=== PATIENT | female | born 1925 | race Caucasian/White ===

== ENCOUNTER 2017-05-23 19:13 | Inpatient (IN) ==
[2017-05-23] MEDS ORDERED: 0.9 % Sodium Chloride 1,000 ML IVC ONE (19:34)
[2017-05-23 20:00] LABS: Basophils % 0.4 %; Eosinophils # 0.1 K/mcL (0.0-0.6); Eosinophils % 1.2 %; Hematocrit 42.9 % (35.3-44.9); Hemoglobin 13.8 g/dL (11.5-15.4); Immature Granulocytes % 0.5 % (0-4); Immature Platelets 3.2 % (1.1-6.1); Lymphocytes # 1.2 K/mcL (0.6-4.6); Lymphocytes % 13.1 %; Mean Corpuscular HGB Conc 32.2 g/dL (31.6-35.5); Mean Corpuscular Hemoglobin 29.6 pg (28.0-33.3); Mean Corpuscular Volume 92.1 fL (83.0-100.0); Monocytes # 0.9 K/mcL (0.0-1.3); Monocytes % 9.8 %; Neutrophils # 7.1 K/mcL (1.6-8.9); Platelet Count 286 K/mcL (140-400); Red Blood Count 4.66 M/mcL (3.82-4.97); Red Cell Distribution Width 14.4 % (11.5-14.5)
[2017-05-23 20:04] LABS: INR 2.3; Prothrombin Time 25.5 Seconds (9.4-12.1)
[2017-05-23 20:07] LABS: Activated Partial Thrombo Time 36.4 Seconds (26.0-36.0)
[2017-05-23 20:10] LABS: Bilirubin,Urine Negative (Negative); Blood,Urine Moderate (Negative); Clarity,Urine Cloudy (Clear); Color,Urine Yellow (Yellow); Glucose,Urine (UA) Normal (Normal); Ketones,Urine 15 mg/dL (Negative); Leukocyte Esterase,Urine Small (Negative); Nitrite,Urine Negative (Negative); Protein,Urine Negative (Neg-Trace); Urobilinogen,Urine Normal (Normal)
[2017-05-23 20:12] LABS: Bacteria,Urine Many per hpf (None-Few); Hyaline Casts,Urine None Seen per lpf (None-Few); Squamous Epithelial Cell,Urine Many per lpf (None-Few)
[2017-05-23 20:13] LABS: Albumin 3.5 g/dL (3.5-5.0); Albumin/Globulin Ratio 1.1 (1.1-2.2); Bilirubin,Direct 0.3 mg/dL (0.0-0.5); Bilirubin,Indirect 0.3 mg/dL (0.0-1.2); Bilirubin,Total 0.6 mg/dL (0.2-1.2); Calcium 9.4 mg/dL (8.6-10.8); Globulin 3.1 g/dL (2.4-3.5); Magnesium 1.7 mg/dL (1.6-2.6); Phosphorous 3.7 mg/dL (2.3-4.7); Potassium 3.6 mEq/L (3.5-4.5); Total Protein 6.6 g/dL (6.0-8.3)
--- NOTE | 2017-05-23 21:11 | Emergency Department Note ---
Disposition Clinical Impression: Pyelonephritis, Lactic acid acidosis, MIRI (acute kidney injury) Disposition: Admitted As Inpatient Condition: Fair Time of Disposition: 21:43 SOB HPI - General Chief Complaint: ED Shortness of Breath/Dyspnea Stated Complaint: NEFTALI Source: family Mode of arrival: wheelchair Limitations: no limitations Nursing Notes Reviewed: Yes Vital Signs Reviewed: Yes - History of Present Illness 89-year-old female presents to the emergency department complaining of shortness of breath as well as altered mental status. They said this has been going on for approximately 2 days. She does have history of aspiration pneumonia and they are worried about this. Patient has history of COPD but is not on oxygen. She has had to be intubated before do the aspiration pneumonia. They said she is not acting her normal self or she seems like she is more weak than normal. She is normally able to get up on her own and walk with a walker and this not been occurring for the last 2 days. She also has a history of UTIs. They think that also could be this. Recently seen by the PCP and there are some labs drawn today to have any on her eyes or her neck on the results back yet. 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 Patient does live at home with daughter is the primary hot blaster. Patient is not having any other complaints including chest pain, headache, blurry vision, neck pain, back pain, abdominal pain, change in bowel movement, pain with urination, pain or tingling going down the arms or legs or generalized weakness. - Related Data Home Medications Medication Instructions Recorded Confirmed Diltiazem CD (24hr) [Cardizem CD] 180 mg PO DAILY 12/30/15 12/30/15 FLUoxetine HCl [PROzac] 20 mg PO DAILY 12/30/15 12/30/15 Furosemide [Lasix] 20 mg PO DAILY 12/30/15 12/30/15 Hydrocodone/Acetaminophen [Vicodin 1 each PO BID PRN 12/30/15 12/30/15 Es 7.5-300 mg Tablet] Metoprolol Succinate 12.5 mg PO 12/30/15 Ranitidine Oral Soln [Zantac] 150 mg PO DAILY 12/30/15 12/30/15 Warfarin [Coumadin] 2 mg PO 12/30/15 Allergies Allergy/AdvReac Type Severity Reaction Status Date / Time carisoprodol [From Soma] Allergy Rash Verified 12/30/15 12:51 indomethacin [From Indocin] Allergy Rash Verified 12/30/15 12:51 NSAIDS (Non-Steroidal Allergy Rash Verified 12/30/15 12:51 Anti-Inflamma Penicillins [PCN] Allergy Rash Verified 12/30/15 12:51 venom-honey bee Allergy Anaphylaxis Verified 12/30/15 12:51 [bee venom (honey bee)] Review of Systems: 10 point review of systems done and negative unless otherwise stated in history of present illness. All systems ED: reviewed and negative except as stated. Review of Systems: As Per [facility] Past Medical History - Past Medical History Attestation: Yes The following information was validated with the patient. Medical history: Reports: arthritis, atrial fibrillation, CHF, GERD, hypertension, osteoporosis, other Psychiatric history: Reports: no psych history - Social History Smoking Status: Never smoker Smokeless Tobacco Status: No Alcohol use: Reports: none Drug use: Reports: none Physical Exam - General Limitations: no limitations General appearance: alert, in no apparent distress - Head Head exam: atraumatic, normocephalic, normal inspection - Eye Eye exam: Present: normal appearance, PERRL, EOMI - ENT ENT exam: normal exam, normal oropharynx, mucous membranes moist - Neck Neck exam: Present: normal inspection, full ROM, trachea midline - Chest Chest inspection: Present: normal inspection, symmetric chest wall rise - Respiratory Respiratory exam: Present: normal lung sounds bilaterally - Cardiovascular Cardiovascular exam: Present: regular rate, irregular rhythm, normal heart sounds - Abdominal Exam Abdominal exam: Present: soft, Non-Tender. Absent: tenderness, distention, guarding, rebound, rigidity - Extremities Exam Extremities exam: Present: normal inspection, full ROM. Absent: tenderness, pedal edema - Expanded Lower Extremity Exam Neurovascular/Tendon exam: Present: normal capillary refill. Absent: pulse deficit, motor deficit, sensory deficit, tendon deficit - Back Exam Back exam: Present: normal inspection, full ROM. Absent: tenderness, CVA tenderness (R), CVA tenderness (L) - Neurological Exam Neurological exam: Present: alert, oriented X3 - Skin Skin exam: Present: warm, dry, intact, normal color Course Course Narrative: 89-year-old male presents emergency Department with altered mental status as well as difficulty in breathing. Due to patient's history we will do surge criteria patient did not meet admission and she was not tachycardic or hypotensive. We will get basic CBC, CMP, lactate with a timely lactate, blood cultures, urinalysis, mag, Phos, chest x-ray patient's okay with this plan. Disposition pending results and discussion with family. Vital Signs Temperature 97.6 F 05/23/17 19:15 Pulse Rate 102 05/23/17 19:15 Respiratory Rate 20 05/23/17 19:15 Blood Pressure 91/58 05/23/17 19:15 O2 Sat by Pulse Oximetry 98 05/23/17 19:15 Temperature 97.6 F 05/23/17 19:15 Pulse Rate 66 05/23/17 21:02 Respiratory Rate 97 05/23/17 21:50 Blood Pressure 111/66 05/23/17 21:50 O2 Sat by Pulse Oximetry 98 05/23/17 21:02 Oxygen Delivery Oxygen Delivery Room Air Shortness of Breath/Dyspnea - MDM Narrative Medical decision making narrative: 89-year-old female presented to the emergency department with generalized weakness as well as shortness of breath. Patient did have mild altered mental status after evaluating her. She had normal breath sounds bilaterally. Chest x -ray was normal showing no acute findings. Did do basic sepsis criteria on her she did show to have a lactic acidosis did give her 1500 mL of normal saline to meet the 30 mls per KG. And started patient on Rocephin. Patient did have a positive UTI due to lactic acidosis as well as having a new acute kidney injury we felt patient was likely a pyelonephritis and would benefit from admission to the hospital to monitor the lactic acidosis as well as the AKA eye. Spoke with family in a group this plan. Patient is now admitted to the hospitalist service I talked with Dr. Cruz who agreed to accept the patient to their service. Patient is accepted to the hospital service in stable condition. Chest X-Ray 05/23/17 20:04 IMPRESSION: Stable cardiomegaly. Probable COPD. Increased lung markings at the bilateral parahilar regions, may be related to bronchitis. D/ / Wilmar Mo MD / Wilmar Mo MD Interpreting Provider: Wilmar Mo MD - Medical Records Medical records reviewed: Yes I reviewed the patient's medical records. - Lab Data Lab results reviewed: Yes I reviewed the patient's lab results. Result diagrams: 05/23/17 19:45 05/23/17 19:45 Lab Results 05/23/17 05/23/17 05/23/17 Range/Units 19:45 19:45 19:45 WBC 9.5 (4.3-11.1) K/mcL RBC 4.66 (3.82-4.97) M/mcL Hgb 13.8 (11.5-15.4) g/dL Hct 42.9 (35.3-44.9) % MCV 92.1 (83.0-100.0) fL MCH 29.6 (28.0-33.3) pg MCHC 32.2 (31.6-35.5) g/dL RDW 14.4 (11.5-14.5) % Plt Count 286 (140-400) K/mcL MPV 10.0 (9.4-12.4) fL Immature Gran % 0.5 (0-4) % Seg Neutrophils % 75.0 % Lymphocytes % 13.1 % Monocytes % 9.8 % Eosinophils % 1.2 % Basophils % 0.4 % Neutrophils # 7.1 (1.6-8.9) K/mcL Lymphocytes # 1.2 (0.6-4.6) K/mcL Monocytes # 0.9 (0.0-1.3) K/mcL Eosinophils # 0.1 (0.0-0.6) K/mcL Basophils # 0.0 (0.0-0.2) K/mcL Immature Plt Fraction 3.2 (1.1-6.1) % PT 25.5 H (9.4-12.1) Seconds INR 2.3 APTT 36.4 H (26.0-36.0) Seconds Sodium 142 (136-145) mEq/L Potassium 3.6 (3.5-4.5) mEq/L Chloride 104 (98-109) mEq/L Carbon Dioxide 21 (19-29) mEq/L BUN 17 (7-20) mg/dL Creatinine 1.24 H (0.57-1.11) mg/dL Est GFR ( Amer) 49 L (> 60) Est GFR (Non-Af Amer) 41 L (> 60) BUN/Creatinine Ratio 14 (6-26) Glucose 178 H (70-99) mg/dL Calculated Osmolality 300 (280-300) Lactic Acid (0.5-2.2) mmol/L Calcium 9.4 (8.6-10.8) mg/dL Phosphorus 3.7 (2.3-4.7) mg/dL Magnesium 1.7 (1.6-2.6) mg/dL Total Bilirubin 0.6 (0.2-1.2) mg/dL Direct Bilirubin 0.3 (0.0-0.5) mg/dL Indirect Bilirubin 0.3 (0.0-1.2) mg/dL AST 18 (5-34) Units/L ALT 10 (0-55) Units/L Alkaline Phosphatase 106 (38-126) Units/L Troponin I (0-0.03) ng/mL Serum Total Protein 6.6 (6.0-8.3) g/dL Albumin 3.5 (3.5-5.0) g/dL Globulin 3.1 (2.4-3.5) g/dL Albumin/Globulin Ratio 1.1 (1.1-2.2) Urine Color (Yellow) Urine Clarity (Clear) Urine pH (5.0-8.0) pH Units Ur Specific [place] (1.010-1.025) Urine Protein (Neg-Trace) mg/dL Urine Glucose (UA) (Normal) mg/dL Urine Ketones (Negative) mg/dL Urine Blood (Negative) Urine Nitrite (Negative) Urine Bilirubin (Negative) Urine Urobilinogen (Normal) mg/dL Ur Leukocyte Esterase (Negative) Urine Microscopic RBC (0-3) per hpf Urine Microscopic WBC (0-3) per hpf Ur Squamous Epith Cells (None-Few) per lpf Urine Bacteria (None-Few) per hpf Hyaline Casts (None-Few) per lpf Ur Culture Indicated? (NO) 05/23/17 05/23/17 05/23/17 Range/Units 19:45 19:45 20:00 WBC (4.3-11.1) K/mcL RBC (3.82-4.97) M/mcL Hgb (11.5-15.4) g/dL Hct (35.3-44.9) % MCV (83.0-100.0) fL MCH (28.0-33.3) pg MCHC (31.6-35.5) g/dL RDW (11.5-14.5) % Plt Count (140-400) K/mcL MPV (9.4-12.4) fL Immature Gran % (0-4) % Seg Neutrophils % % Lymphocytes % % Monocytes % % Eosinophils % % Basophils % % Neutrophils # (1.6-8.9) K/mcL Lymphocytes # (0.6-4.6) K/mcL Monocytes # (0.0-1.3) K/mcL Eosinophils # (0.0-0.6) K/mcL Basophils # (0.0-0.2) K/mcL Immature Plt Fraction (1.1-6.1) % PT (9.4-12.1) Seconds INR APTT (26.0-36.0) Seconds Sodium (136-145) mEq/L Potassium (3.5-4.5) mEq/L Chloride (98-109) mEq/L Carbon Dioxide (19-29) mEq/L BUN (7-20) mg/dL Creatinine (0.57-1.11) mg/dL Est GFR ( Amer) (> 60) Est GFR (Non-Af Amer) (> 60) BUN/Creatinine Ratio (6-26) Glucose (70-99) mg/dL Calculated Osmolality (280-300) Lactic Acid 4.9 H* (0.5-2.2) mmol/L Calcium (8.6-10.8) mg/dL Phosphorus (2.3-4.7) mg/dL Magnesium (1.6-2.6) mg/dL Total Bilirubin (0.2-1.2) mg/dL Direct Bilirubin (0.0-0.5) mg/dL Indirect Bilirubin (0.0-1.2) mg/dL AST (5-34) Units/L ALT (0-55) Units/L Alkaline Phosphatase (38-126) Units/L Troponin I 0.03 (0-0.03) ng/mL Serum Total Protein (6.0-8.3) g/dL Albumin (3.5-5.0) g/dL Globulin (2.4-3.5) g/dL Albumin/Globulin Ratio (1.1-2.2) Urine Color Yellow (Yellow) Urine Clarity Cloudy A (Clear) Urine pH 6.0 (5.0-8.0) pH Units Ur Specific [place] 1.020 (1.010-1.025) Urine Protein Negative (Neg-Trace) mg/dL Urine Glucose (UA) Normal (Normal) mg/dL Urine Ketones 15 H (Negative) mg/dL Urine Blood Moderate H (Negative) Urine Nitrite Negative (Negative) Urine Bilirubin Negative (Negative) Urine Urobilinogen Normal (Normal) mg/dL Ur Leukocyte Esterase Small H (Negative) Urine Microscopic RBC 5-15 H (0-3) per hpf Urine Microscopic WBC 5-15 H (0-3) per hpf Ur Squamous Epith Cells Many H (None-Few) per lpf Urine Bacteria Many H (None-Few) per hpf Hyaline Casts None Seen (None-Few) per lpf Ur Culture Indicated? NO (NO) - Radiology Data Radiology results reviewed: Yes I reviewed the patient's radiology results. - EKG Data EKG attestation: Yes I reviewed and interpreted this EKG. EKG results narrative: EKG done at 1932 review myself and attending shows atrial fibrillation at a rate of 85, QRS 96, QTC 439, normal axis. There is no acute ST changes, no acute T-wave abnormalities, no signs of any heart block were hypertrophy or heart strength, no signs of WPW/Brugada syndrome. This is compared with an old EKG done 12/30/15 and is unchanged. Attestation Statement - Attestation Attestation: I examined this patient and my medical decision-making was reviewed with the Resident Physician. I agree with the documented findings, disposition and treatment plan as described except to the extent set forth below. Patient to ED with dyspnea on exertion. Complaining of shortness of breath. Daughter thought she looked a little labored in her breathing earlier. Appears better now. No fever. On examination she is lying in bed. She is oriented to self and place. This is her baseline. She is moving all extremities. Plan patient is an elevated lactic acid that puts her in the septic shock diagnosis. She appears well-hydrated. She is received at 30/kg bolus. She has not been hypotensive. She is mentating at her baseline. She is receiving IV antibiotics for UTI. She is admitted to medicine. 35 minutes of critical care exclusive of separately billable procedures.
[2017-05-23] MEDS ORDERED: cefTRIAXone 1,000 MG in Water for inj. (sterile) 10 ML IVPB ONE (21:38)
[2017-05-23] MEDS ORDERED: 0.9 % Sodium Chloride 1,000 ML IVC SCH (21:45)
[2017-05-23] MEDS ORDERED: Naloxone 0.4 MG/ML INJ IVP PRN (21:47)
[2017-05-23] MEDS ORDERED: Ondansetron 4 MG/2 ML VIAL IVP PRN (21:47)
[2017-05-23] MEDS ORDERED: *HR* HYDROcodone/Acet 7.5/325 mg TABLET PO PRN (21:49)
--- NOTE | 2017-05-23 21:54 | Internal Med History&Physical ---
Date of Encounter: 05/23/17 Time of Encounter: 21:51 Assessment and Plan (1) UTI (urinary tract infection) Current visit: Yes Status: Acute urine cx pend risk factor of urinary/bowel incontinent at baselin IV rocephin IVF Qualifiers: Urinary tract infection type: acute cystitis Qualified Code(s): N30.00 - Acute cystitis without hematuria (2) MIRI (acute kidney injury) Current visit: Yes Status: Acute IVF trend cr (3) Lactic acid acidosis Current visit: Yes Status: Acute see above (4) Dementia Current visit: Yes Status: Acute sitter per family request aspiration precautions fall risk Qualifiers: Dementia type: Alzheimer's disease Qualified Code(s): G30.1 - Alzheimer's disease with late onset; F02.81 - Dementia in other diseases classified elsewhere with behavioral disturbance; F02.81 - Dementia in other diseases classified elsewhere with behavioral disturbance; F02.81 - Dementia in other diseases classified elsewhere with behavioral disturbance Internal Medicine - H&P: HPI Chief complaint: Hasn't feel good History of present illness: Ms. Burroughs is a 89 year old female who presents with confusion found UTI, MIRI. She lives with dtr at home and is DNRCCA/DNI. Baseline, she uses walker but has mild to moderate dementia and has aspiration and delirium risk. Dtr requested for sitter as a result of this. She is uses depends and is incontinent of bowel and urine mostly She was noted to have decreased mental status in the last 2 days associated with some choking during breakfast. She reports not feeling good but was unable to specific area. Denies fever/chills. She is hard of hearing. No N/V/abdo pain but has poor appetite EKG reviewed with rate 85, AFib XR/XR chest 1V portable IMPRESSION: Stable cardiomegaly. Probable COPD. Increased lung markings at the bilateral parahilar regions, may be related to bronchitis. Past Med Surg Social Fam HX - Past Medical History Medical history: arthritis, atrial fibrillation, CHF, GERD, hypertension, osteoporosis, other Psychiatric history: no psych history - Past Surgical History Surgical History: no surgical history - Social History Smoking Status: Never smoker Smokeless Tobacco Status: No Alcohol use: none Drug use: none - Additional Family History Additional family history: HTN Internal Medicine - H&P: Meds Diltiazem CD (24hr) [Cardizem CD] 180 mg PO DAILY 12/30/15 [History] FLUoxetine HCl [PROzac] 20 mg PO DAILY 12/30/15 [History] Furosemide [Lasix] 20 mg PO DAILY 12/30/15 [History] Hydrocodone/Acetaminophen [Vicodin Es 7.5-300 mg Tablet] 1 each PO BID PRN 12/29 [History] Metoprolol Succinate 12.5 mg PO 12/30/15 [History] Ranitidine Oral Soln [Zantac] 150 mg PO DAILY 12/30/15 [History] Warfarin [Coumadin] 2 mg PO 12/30/15 [History] 3 Allergy/AdvReac Type Severity Reaction Status Date / Time carisoprodol [From Soma] Allergy Rash Verified 12/30/15 12:51 indomethacin [From Indocin] Allergy Rash Verified 12/30/15 12:51 NSAIDS (Non-Steroidal Allergy Rash Verified 12/30/15 12:51 Anti-Inflamma Penicillins [PCN] Allergy Rash Verified 12/30/15 12:51 venom-honey bee Allergy Anaphylaxis Verified 12/30/15 12:51 [bee venom (honey bee)] All Systems PM: A 10-system review of systems was performed and is negative for pertinent findings except as documented above in the HPI. Review of systems: ROS 14 point review of systems reviewed as best as possible given presentation. Pertinent positive or negative as per HPI or otherwise reviewed as negative - Constitutional Vitals: Temp Pulse Resp BP Pulse Ox 97.6 F 66 18 111/57 98 05/23/17 19:15 05/23/17 21:02 05/23/17 21:02 05/23/17 21:02 05/23/17 21:02 Exam: General - AA x2 Eyes - ISABELLA. Eye lids intact. No scleral icterus Neuro - No gross peripheral or central neuro deficits with intact CN 2-12 exam Heart - Irregularly irregular. S1 and S2 present. No added HS/murmurs appreciated. No elevated JVD appreciated. Lung - Adequate air entry b/l, No crackles/wheezes appreciated GI - Soft, non-tender. No hepatosplenomegaly/ascites. BS+ - No CVA/suprapubic tenderness or palpable bladder distension Skin - Intact. No rash/petechiae/ecchymosis. Warm extremities MSK - Joints with normal ROM. No joint swellings Internal Med - H&P Results - Labs CBC & Chem 7: 05/23/17 19:45 05/23/17 19:45
[2017-05-23] MEDS: Ringers Solution, Lactated 1,000 ML IVC SCH (23:10)
[2017-05-24 07:17] LABS: Basophils # 0.1 K/mcL (0.0-0.2); Basophils % 0.8 %; Eosinophils # 0.4 K/mcL (0.0-0.6); Eosinophils % 6.2 %; Hematocrit 34.1 % (35.3-44.9); Immature Granulocytes % 0.5 % (0-4); Lymphocytes # 1.5 K/mcL (0.6-4.6); Lymphocytes % 23.5 %; Mean Corpuscular HGB Conc 33.1 g/dL (31.6-35.5); Mean Corpuscular Hemoglobin 30.5 pg (28.0-33.3); Mean Corpuscular Volume 92.2 fL (83.0-100.0); Mean Platelet Volume 9.9 fL (9.4-12.4); Monocytes # 0.5 K/mcL (0.0-1.3); Monocytes % 7.7 %; Neutrophils # 3.9 K/mcL (1.6-8.9); Platelet Count 202 K/mcL (140-400); Red Cell Distribution Width 14.3 % (11.5-14.5); Segmented Neutrophils % 61.3 %
[2017-05-24 07:20] LABS: Hemoglobin 11.3 g/dL (11.5-15.4); INR 2.6; Prothrombin Time 28.6 Seconds (9.4-12.1)
[2017-05-24 07:29] LABS: BUN/Creatinine Ratio 17 (6-26); Blood Urea Nitrogen 13 mg/dL (7-20); Calcium 8.4 mg/dL (8.6-10.8); Carbon Dioxide 22 mEq/L (19-29); Chloride 112 mEq/L (98-109); Glucose 91 mg/dL (70-99); Magnesium 1.6 mg/dL (1.6-2.6); Osmolality,Calculated 298 (280-300); Potassium 3.4 mEq/L (3.5-4.5); Sodium 144 mEq/L (136-145); eGFR For African Americans > 60 (> 60); eGFR For Non-African Americans > 60 (> 60)
[2017-05-24] MEDS: FLUoxetine 20 MG CAPSULE PO SCH (08:37)
[2017-05-24] MEDS: Diltiazem CD (24hr) 180 MG CAPSULE PO SCH (08:37)
[2017-05-24] MEDS ORDERED: Famotidine 20 MG TABLET PO SCH (09:00)
--- NOTE | 2017-05-24 10:31 | Internal Med Progress Note ---
Date of Encounter: 05/24/17 Time of Encounter: 10:28 - Assessment and plan (1) UTI (urinary tract infection) Current Visit: Yes Status: Acute Assessment and plan: Acute metabolic encephalopathy likely secondary to sepsis due to urinary tract infection Heart rate 102, lactic acid 4.9 Continue ceftriaxone day 2 Urine culture pending May continue IV fluids Qualifiers: Urinary tract infection type: acute cystitis Qualified Code(s): N30.00 - Acute cystitis without hematuria (2) Hypokalemia Current Visit: Yes Status: Acute Assessment and plan: Replete as needed (3) Lactic acid acidosis Current Visit: Yes Status: Acute Assessment and plan: Resolved (4) MIRI (acute kidney injury) Current Visit: Yes Status: Acute Assessment and plan: Likely secondary to infection Resolved on IV fluids (5) Dementia Current Visit: Yes Status: Acute Qualifiers: Dementia type: Alzheimer's disease Qualified Code(s): G30.1 - Alzheimer's disease with late onset; F02.81 - Dementia in other diseases classified elsewhere with behavioral disturbance; F02.81 - Dementia in other diseases classified elsewhere with behavioral disturbance; F02.81 - Dementia in other diseases classified elsewhere with behavioral disturbance (6) A-fib Current Visit: Yes Status: Acute Assessment and plan: Continue metoprolol succinate, diltiazem, and warfarin, INR is therapeutic Qualifiers: Atrial fibrillation type: paroxysmal Qualified Code(s): I48.0 - Paroxysmal atrial fibrillation (7) Chronic diastolic CHF (congestive heart failure) Current Visit: Yes Status: Acute Assessment and plan: No exacerbation Hold Lasix for now - Subjective Interval history: Oriented in person only, denies pain, unable to complete review of systems due to the patient's dementia and confusion - Constitutional Vitals: Temp Pulse Resp BP Pulse Ox 98.3 F 57 16 102/59 96 05/24/17 07:36 05/24/17 07:36 05/24/17 07:36 05/24/17 07:36 05/24/17 09:35 General appearance: Present: A&O X 1 - Head Head exam: Present: atraumatic, normocephalic - Eye Eye exam: Present: PERRL, conjuntiva pink, sclera anicteric Pupils: Present: PERRL - Neck Neck exam general surgery: Present: supple, trachea midline. Absent: lymphadenopathy - Respiratory Respiratory exam: Present: decreased breath sounds, CTAB. Absent: accessory muscle use, rales, rhonchi, wheezes - Cardiovascular Cardiovascular exam: Present: RRR, +S1, +S2. Absent: diastolic murmur, gallop, rubs, systolic murmur - GI/Abdominal GI/Abdominal exam: Present: distended, normal bowel sounds, soft, no peritoneal signs. Absent: tenderness - Extremities Exam Extremities exam: Present: pedal edema (+1 pitting edema in both lower extremities), warm, radial pulses palpable and symmetrical. Absent: calf tenderness, cyanotic - Neurological Exam Neurological exam: Present: CN II-XII intact, no focal deficits. Absent: oriented X3, pronater drift, facial droop, speech deficit Additional comments: Severe kyphosis and scoliosis - Skin Skin exam: Present: dry, intact Internal Medicine: Result - Labs CBC & Chem 7: 05/24/17 07:00 05/24/17 07:00 Labs: Short CBC 05/24/17 Range/Units 07:00 WBC 6.3 (4.3-11.1) K/mcL Hgb 11.3 L D (11.5-15.4) g/dL Hct 34.1 L (35.3-44.9) % Plt Count 202 (140-400) K/mcL Neutrophils # 3.9 (1.6-8.9) K/mcL BMP 05/24/17 07:00 Sodium 144 Potassium 3.4 L Chloride 112 H Carbon Dioxide 22 BUN 13 Creatinine 0.75 Glucose 91 Calcium 8.4 L - ABG Interpretation ABG results: PT/INR, D-dimer PT 28.6 Seconds (9.4-12.1) H 05/24/17 07:00 Consult Discharge Plan - Plan Referrals: Leslie Umana MD [Primary Care Provider] -
[2017-05-24] MEDS: Ringers Solution, Lactated 1,000 ML IVC SCH (12:55)
[2017-05-24] MEDS: Metoprolol XL (24 HR) Succ 25 MG TAB.ER.24H PO SCH (12:55)
[2017-05-24] MEDS: cefTRIAXone 1,000 MG in Water for inj. (sterile) 10 ML IVP SCH (12:59)
[2017-05-24] MEDS: *HR* Warfarin 2 MG TABLET PO SCH (18:40)
[2017-05-25 04:15] LABS: Basophils % 0.7 %; Eosinophils # 0.5 K/mcL (0.0-0.6); Hematocrit 35.6 % (35.3-44.9); Hemoglobin 11.4 g/dL (11.5-15.4); Immature Granulocytes % 0.3 % (0-4); Lymphocytes # 1.6 K/mcL (0.6-4.6); Lymphocytes % 26.3 %; Mean Corpuscular Hemoglobin 29.5 pg (28.0-33.3); Mean Corpuscular Volume 92.2 fL (83.0-100.0); Mean Platelet Volume 9.9 fL (9.4-12.4); Monocytes # 0.5 K/mcL (0.0-1.3); Monocytes % 8.6 %; Neutrophils # 3.3 K/mcL (1.6-8.9); Platelet Count 219 K/mcL (140-400); Red Blood Count 3.86 M/mcL (3.82-4.97); Red Cell Distribution Width 14.4 % (11.5-14.5); Segmented Neutrophils % 56.1 %
[2017-05-25 04:18] LABS: INR 2.5
[2017-05-25 05:04] LABS: BUN/Creatinine Ratio 10 (6-26); Blood Urea Nitrogen 7 mg/dL (7-20); Calcium 8.6 mg/dL (8.6-10.8); Carbon Dioxide 23 mEq/L (19-29); Chloride 110 mEq/L (98-109); Glucose 95 mg/dL (70-99); Magnesium 1.4 mg/dL (1.6-2.6); Osmolality,Calculated 292 (280-300); Potassium 3.4 mEq/L (3.5-4.5); Sodium 142 mEq/L (136-145); eGFR For African Americans > 60 (> 60); eGFR For Non-African Americans > 60 (> 60)
[2017-05-25] MEDS ORDERED: Water for inj. (sterile) 10 ML IV ONE (09:15)
[2017-05-25] MEDS: cefTRIAXone 1,000 MG in Water for inj. (sterile) 10 ML IVP SCH ×2 (09:19→10:26)
[2017-05-25] MEDS: Diltiazem CD (24hr) 180 MG CAPSULE PO SCH (09:25)
[2017-05-25] MEDS: Metoprolol XL (24 HR) Succ 25 MG TAB.ER.24H PO SCH (09:25)
[2017-05-25] MEDS: FLUoxetine 20 MG CAPSULE PO SCH (09:25)
[2017-05-25] MEDS ORDERED: Famotidine 20 MG TABLET PO SCH (13:15)
--- NOTE | 2017-05-25 13:56 | Internal Med Progress Note ---
Date of Encounter: 05/25/17 Time of Encounter: 13:53 - Assessment and plan (1) UTI (urinary tract infection) Current Visit: Yes Status: Acute Assessment and plan: Acute metabolic encephalopathy likely secondary to sepsis due to urinary tract infection Heart rate 102, lactic acid 4.9 Continue ceftriaxone day 3 continue IV fluids Qualifiers: Urinary tract infection type: acute cystitis Qualified Code(s): N30.00 - Acute cystitis without hematuria (2) Hypokalemia Current Visit: Yes Status: Acute Assessment and plan: Replete as needed (3) Lactic acid acidosis Current Visit: Yes Status: Acute Assessment and plan: Resolved (4) MIRI (acute kidney injury) Current Visit: Yes Status: Acute Assessment and plan: Likely secondary to infection Resolved on IV fluids (5) Dementia Current Visit: Yes Status: Acute Qualifiers: Dementia type: Alzheimer's disease Qualified Code(s): G30.1 - Alzheimer's disease with late onset; F02.81 - Dementia in other diseases classified elsewhere with behavioral disturbance; F02.81 - Dementia in other diseases classified elsewhere with behavioral disturbance; F02.81 - Dementia in other diseases classified elsewhere with behavioral disturbance (6) A-fib Current Visit: Yes Status: Acute Assessment and plan: Continue metoprolol succinate, diltiazem, and warfarin, INR is therapeutic Qualifiers: Atrial fibrillation type: paroxysmal Qualified Code(s): I48.0 - Paroxysmal atrial fibrillation (7) Chronic diastolic CHF (congestive heart failure) Current Visit: Yes Status: Acute Assessment and plan: No exacerbation resume Lasix - Subjective Interval history: Very confused. Oriented in person only, denies pain, unable to complete review of systems due to the patient's dementia and confusion - Constitutional Vitals: Temp Pulse Resp BP Pulse Ox 97.4 F L 72 16 142/68 97 05/25/17 10:58 05/25/17 10:58 05/25/17 10:58 05/25/17 10:58 05/25/17 11:00 General appearance: Present: A&O X 1 - Head Head exam: Present: atraumatic, normocephalic - Eye Eye exam: Present: PERRL, conjuntiva pink, sclera anicteric Pupils: Present: PERRL - Neck Neck exam general surgery: Present: supple, trachea midline. Absent: lymphadenopathy - Respiratory Respiratory exam: Present: CTAB. Absent: accessory muscle use, rales, rhonchi, wheezes - Cardiovascular Cardiovascular exam: Present: RRR, +S1, +S2. Absent: diastolic murmur, gallop, rubs, systolic murmur - GI/Abdominal GI/Abdominal exam: Present: normal bowel sounds, soft, no peritoneal signs. Absent: distended, tenderness - Extremities Exam Extremities exam: Present: warm, radial pulses palpable and symmetrical. Absent : calf tenderness, cyanotic, pedal edema - Neurological Exam Neurological exam: Present: CN II-XII intact, no focal deficits. Absent: oriented X3, pronater drift, facial droop, speech deficit Additional comments: severe xiphosis - Skin Skin exam: Present: dry, intact Internal Medicine: Result - Labs CBC & Chem 7: 05/25/17 04:02 05/25/17 04:02 Labs: Short CBC 05/25/17 Range/Units 04:02 WBC 5.9 (4.3-11.1) K/mcL Hgb 11.4 L (11.5-15.4) g/dL Hct 35.6 (35.3-44.9) % Plt Count 219 (140-400) K/mcL Neutrophils # 3.3 (1.6-8.9) K/mcL BMP 05/25/17 04:02 Sodium 142 Potassium 3.4 L Chloride 110 H Carbon Dioxide 23 BUN 7 Creatinine 0.67 Glucose 95 Calcium 8.6 - ABG Interpretation ABG results: PT/INR, D-dimer PT 27.0 Seconds (9.4-12.1) H 05/25/17 04:02 Consult Discharge Plan - Plan Referrals: Leslie Umana MD [Primary Care Provider] - (web request follow up on )
[2017-05-25] MEDS ORDERED: Magnesium Oxide 400 MG TABLET PO ONE (14:50)
[2017-05-25] MEDS: *HR* Warfarin 2 MG TABLET PO SCH (16:11)
[2017-05-25] MEDS ORDERED: Warfarin perPT PO PRN (18:00)
[2017-05-26 03:47] LABS: INR 2.1; Prothrombin Time 23.1 Seconds (9.4-12.1)
[2017-05-26 03:55] LABS: BUN/Creatinine Ratio 9 (6-26); Blood Urea Nitrogen 6 mg/dL (7-20); Calcium 8.6 mg/dL (8.6-10.8); Carbon Dioxide 22 mEq/L (19-29); Chloride 111 mEq/L (98-109); Glucose 85 mg/dL (70-99); Magnesium 1.3 mg/dL (1.6-2.6); Osmolality,Calculated 289 (280-300); Potassium 3.8 mEq/L (3.5-4.5); Sodium 141 mEq/L (136-145); eGFR For African Americans > 60 (> 60); eGFR For Non-African Americans > 60 (> 60)
--- NOTE | 2017-05-26 07:59 | Internal Med Progress Note ---
<Santos Wilburn - Last Filed: 05/26/17 15:04> Date of Encounter: 05/26/17 Time of Encounter: 10:18 - Assessment and plan (1) Hypomagnesemia Current Visit: Yes Status: Acute Assessment and plan: Was 1.4 yesterday is 1.3 today did order PO mag but pt was unable to take due to decrased PO and pending swallow study with PT/OT. Will order 1G IV Mag to be given to normalize magnesium. (2) Lactic acid acidosis Current Visit: Yes Status: Acute Assessment and plan: Resolved (3) MIRI (acute kidney injury) Current Visit: Yes Status: Acute Assessment and plan: Likely secondary to infection Resolved on IV fluids (4) UTI (urinary tract infection) Current Visit: Yes Status: Acute Assessment and plan: Acute metabolic encephalopathy likely secondary to sepsis due to urinary tract infection Heart rate 102, lactic acid 4.9 Continue ceftriaxone day 4 continue IV fluids Qualifiers: Urinary tract infection type: acute cystitis Hematuria presence: without hematuria Qualified Code(s): N30.00 - Acute cystitis without hematuria (5) Dementia Current Visit: Yes Status: Acute Qualifiers: Dementia type: Alzheimer's disease Alzheimer's disease onset: unspecified onset Dementia behavioral disturbance: without behavioral disturbance Qualified Code(s): G30.9 - Alzheimer's disease, unspecified; F02.80 - Dementia in other diseases classified elsewhere without behavioral disturbance; F02.80 - Dementia in other diseases classified elsewhere without behavioral disturbance; F02.80 - Dementia in other diseases classified elsewhere without behavioral disturbance (6) Hypokalemia Current Visit: Yes Status: Acute Assessment and plan: Replete as needed (7) A-fib Current Visit: Yes Status: Acute Assessment and plan: Continue metoprolol succinate, diltiazem, and warfarin, INR is therapeutic Qualifiers: Atrial fibrillation type: paroxysmal Qualified Code(s): I48.0 - Paroxysmal atrial fibrillation (8) Chronic diastolic CHF (congestive heart failure) Current Visit: Yes Status: Acute Assessment and plan: No exacerbation resume Lasix - Subjective Interval history: PT is still lying in bed and is still very lethargic and confused. She is alert and oriented to person and place but not to time. We are still awaiting the daughter to find out what her baseline is. Pt did well overnight. Denies pain. Unable to do ROS due to dementia and confusion. - Constitutional Vitals: Temp Pulse Resp BP Pulse Ox 97.5 F L 60 17 149/86 96 05/26/17 07:20 05/26/17 07:20 05/26/17 07:20 05/26/17 07:20 05/26/17 07:20 General appearance: Present: A&O X 1 - Head Head exam: Present: atraumatic, normocephalic - Eye Eye exam: Present: PERRL, conjuntiva pink, sclera anicteric Pupils: Present: PERRL - Neck Neck exam general surgery: Present: supple, trachea midline. Absent: lymphadenopathy - Respiratory Respiratory exam: Present: CTAB. Absent: accessory muscle use, rales, rhonchi, wheezes - Cardiovascular Cardiovascular exam: Present: RRR, +S1, +S2. Absent: diastolic murmur, gallop, rubs, systolic murmur - GI/Abdominal GI/Abdominal exam: Present: normal bowel sounds, soft, no peritoneal signs. Absent: distended, tenderness - Extremities Exam Extremities exam: Present: warm, radial pulses palpable and symmetrical. Absent : calf tenderness, cyanotic, pedal edema - Neurological Exam Neurological exam: Present: alert, no focal deficits. Absent: pronater drift, facial droop, speech deficit - Skin Skin exam: Present: dry, intact Internal Medicine: Result - Labs CBC & Chem 7: 05/25/17 04:02 05/26/17 03:09 Labs: BMP 05/26/17 03:09 Sodium 141 Potassium 3.8 Chloride 111 H Carbon Dioxide 22 BUN 6 L Creatinine 0.64 Glucose 85 Calcium 8.6 - ABG Interpretation ABG results: PT/INR, D-dimer PT 23.1 Seconds (9.4-12.1) H 05/26/17 03:09 Consult Discharge Plan - Plan Referrals: Leslie Umana MD [Primary Care Provider] - 05/27/17 9:30 am () <Nirav-Adam Avalos - Last Filed: 05/26/17 15:42> Date of Encounter: 05/26/17 - Constitutional Vitals: Temp Pulse Resp BP Pulse Ox 97.7 F 68 16 112/74 98 05/26/17 15:32 05/26/17 15:32 05/26/17 15:32 05/26/17 15:32 05/26/17 15:32 Internal Medicine: Result - Labs CBC & Chem 7: 05/25/17 04:02 05/26/17 03:09 Labs: BMP 05/26/17 03:09 Sodium 141 Potassium 3.8 Chloride 111 H Carbon Dioxide 22 BUN 6 L Creatinine 0.64 Glucose 85 Calcium 8.6 - ABG Interpretation ABG results: PT/INR, D-dimer PT 23.1 Seconds (9.4-12.1) H 05/26/17 03:09 - Attending Attestation I examined this patient and my medical decision-making was reviewed with the Resident Physician. I agree with the documented findings, disposition and treatment plan as described except to the extent set forth below. I have seen and examined the patient. Patient is a 89-year-old female with past mental history of arthritis, dementia, A. fib, CHF, GERD and hypertension. Admitted for UTI and acute kidney injury. Patient seems to be back to baseline mental status. No other acute events or complaints.
--- NOTE | 2017-05-26 09:47 | Electrocardiograph Report ---
[address] [place] [address] Test Date: 2017-05-23 Pat Name: Willow Burroughs Department: [id number] Room: 2A36 Gender: F Public Health Advisor: : [id number] Requested By: Carlos Knight Order Number: [id number] Reading MD: Darrin Corbett DO Measurements Intervals Ferguson Rate: 85 P: AK: 0 QRS: 35 QRSD: 96 T: 42 QT: 397 QTc: 439 Interpretive Statements ATRIAL FIBRILLATION POSSIBLE SEPTAL MYOCARDIAL INFARCTION, PROBABLY OLD NONSPECIFIC ST-T CHANGES Electronically Signed On 05-26-2017 9:46:04 EST by Darrin Corbett DO
[2017-05-26] MEDS: FLUoxetine 20 MG CAPSULE PO SCH (09:53)
[2017-05-26] MEDS: Metoprolol XL (24 HR) Succ 25 MG TAB.ER.24H PO SCH (09:54)
[2017-05-26] MEDS: Diltiazem CD (24hr) 180 MG CAPSULE PO SCH (09:54)
[2017-05-26] MEDS: Furosemide 20 MG TABLET PO SCH (09:54)
[2017-05-26] MEDS: cefTRIAXone 1,000 MG in Water for inj. (sterile) 10 ML IVP SCH (10:09)
[2017-05-26] MEDS ORDERED: Magnesium Sulfate 1 GM in D5% in Water 100 ML IVPB ONE (10:39)
[2017-05-26] MEDS ORDERED: *HR* Warfarin 2 MG TABLET PO SCH (18:00)
[2017-05-27 04:21] LABS: INR 1.9; Prothrombin Time 20.8 Seconds (9.4-12.1)
[2017-05-27 04:34] LABS: BUN/Creatinine Ratio 12 (6-26); Blood Urea Nitrogen 8 mg/dL (8-23); Calcium 8.8 mg/dL (8.6-10.3); Carbon Dioxide 24 mEq/L (23-29); Chloride 109 mEq/L (98-107); Glucose 99 mg/dL (70-105); Osmolality,Calculated 288 (280-300); Potassium 3.9 mEq/L (3.5-5.1); Sodium 140 mEq/L (136-145); eGFR For African Americans > 60 (> 60); eGFR For Non-African Americans > 60 (> 60)
--- NOTE | 2017-05-27 08:30 | Discharge Summary ---
<Santos Wilburn - Last Filed: 05/27/17 11:53> Date of Encounter: 05/27/17 Time of Encounter: 08:30 - Discharge Diagnosis (1) UTI (urinary tract infection) Priority: Primary Status: Acute Qualifiers: Urinary tract infection type: acute cystitis Hematuria presence: without hematuria Qualified Code(s): N30.00 - Acute cystitis without hematuria (2) Lactic acid acidosis Priority: Primary Status: Acute (3) Hypomagnesemia Priority: Primary Status: Acute (4) MIRI (acute kidney injury) Priority: Primary Status: Acute (5) Dementia Priority: Primary Status: Acute Qualifiers: Dementia type: Alzheimer's disease Alzheimer's disease onset: unspecified onset Dementia behavioral disturbance: without behavioral disturbance Qualified Code(s): G30.9 - Alzheimer's disease, unspecified; F02.80 - Dementia in other diseases classified elsewhere without behavioral disturbance; F02.80 - Dementia in other diseases classified elsewhere without behavioral disturbance; F02.80 - Dementia in other diseases classified elsewhere without behavioral disturbance (6) Hypokalemia Priority: Primary Status: Acute (7) A-fib Priority: Primary Status: Acute Qualifiers: Atrial fibrillation type: paroxysmal Qualified Code(s): I48.0 - Paroxysmal atrial fibrillation (8) Chronic diastolic CHF (congestive heart failure) Priority: Primary Status: Acute - Discharge Medications Prescriptions: Cefdinir [Omnicef] 300 mg PO BID #4 capsule Home Medications: RX: Diltiazem CD (24hr) [Cardizem CD] 180 mg PO DAILY 12/30/15 [History] RX: FLUoxetine HCl [Prozac] 20 mg PO DAILY 12/30/15 [History] RX: Metoprolol Succinate 12.5 mg PO DAILY 12/30/15 [History] RX: Warfarin [Coumadin] 2 mg PO HS 12/30/15 [History] RX: Alendronate Sodium [Fosamax] 70 mg PO QWEEK 05/24/17 [History] RX: Ranitidine HCl [Acid Internet Application Developer] 150 mg PO DAILY 05/24/17 [History] Cefdinir [Omnicef] 300 mg PO BID #4 capsule 05/27/17 [Rx] RX: Furosemide [Lasix] 20 mg PO DAILY tablet 05/27/17 [Rx] RX: Omeprazole [PriLOSEC] 20 mg PO DAILY@0730 capsule. 05/27/17 [Rx] RX: Ondansetron [Zofran] 4 mg IVP Q8HR PRN vial 05/27/17 [Rx] Allergies/Adverse Reactions: 3 Allergy/AdvReac Type Severity Reaction Status Date / Time carisoprodol [From Soma] Allergy Rash Verified 12/30/15 12:51 indomethacin [From Indocin] Allergy Rash Verified 12/30/15 12:51 NSAIDS (Non-Steroidal Allergy Rash Verified 12/30/15 12:51 Anti-Inflamma Penicillins [PCN] Allergy Rash Verified 12/30/15 12:51 venom-honey bee Allergy Anaphylaxis Verified 12/30/15 12:51 [bee venom (honey bee)] Date of admission: 05/23/17 21:40 Primary care physician: Leslie Umana, Consults: 05/23/17 22:25 Consult to Pastoral Services [CONS] Routine Comment: 05/24/17 13:44 Consult to Occupational Therapy [CONS] Routine Comment: Evaluate, develop and implement POC Reason for Consult: eval Consult to Physical Therapy [CONS] Routine Comment: Evaluate, develop and implement POC Reason for Consult: eval 05/25/17 15:17 Consult to Speech Therapy [CONS] Routine Comment: Evaluate, develop and implement POC Reason for Consult: Swallow evaluation Call Completed: No Discharging clinician: Santos Wilburn Anticipated date of discharge: 05/27/17 - Patient Status Disposition: Home Health Service Condition: Fair Functional capacity at discharge: uses cane/walker Overall status at discharge: patient is back to baseline - Discharge Instructions Instructions: Heart Failure (DC), Atrial Fibrillation (DC), Urinary Tract Infection in Women (DC) Follow Up With: Leslie Umana MD [Primary Care Provider] - 05/27/17 9:30 am () - Diet and Activity Activity: ambulate only with your walker Diet: advance to your usual diet Interval History: Patient is doing well today she is lying in bed asleep when I went to examine her. Patient states the night well well she had no complaints. She is still alert and oriented to herself and oriented anything else this is her baseline after talking with family. Patient is planned to be discharged home today with family with a home health referral. Patient is not complaining of any pain, dysuria, fevers. Hospital course: Ms. Burroughs is a 89 year old female presented to the emergency department with shortness of breath and altered mental status. She does have a home and her daughter takes care of her she has a history of aspiration pneumonia. In the emergency department she did showed a lactic acidosis and via straight catheter was found to have a urinary tract infection most likely causing pyelonephritis due to the patient's laboratories. In the emergency department she was given 1500 mL of normal saline for septic shock. And also started on Rocephin. She was admitted to the hospitalist for in stable condition. She also had a new MIRI. Patient had no changes on her chest x-ray most likely was all due to pyelonephritis. After fluids her lactic acidosis normalized. She did get 5 days of Rocephin in the hospital. While here she was also hypokalemic which was replenished. She also became hypomagnesemia which also was replenished. In normalized. Patient does have atrial fibrillation as well as CHF we continued all of her normal medications and these were unchanged during her visit at this stage. After time with family and they said that she is now back to baseline where she is alert and oriented to herself but not place and time. Family is okay with discharging her home with a home health referral which has been set up. Patient is to be discharged home with Omnicef for 2 more days so she gets 7 days of antibiotic treatment. We also did a swallow study here and speech said that she could do clear or pureed foods. This was relayed to family. Patient's stay was uneventful here and she is discharged home in stable condition. Time spent discussing smoking cessation with patient: 3 to 10 minutes - Time Spent with Patient Total time spent providing and/or coordinating discharge services: Less than 30 minutes - Constitutional Vitals: Temp Pulse Resp BP Pulse Ox 98.0 F 58 15 125/68 95 05/27/17 07:54 05/27/17 07:54 05/27/17 07:54 05/27/17 07:54 05/27/17 07:54 General appearance: Present: A&O X 1 - Head Head exam: Present: atraumatic, normocephalic - Eye Eye exam: Present: PERRL, conjuntiva pink, sclera anicteric Pupils: Present: PERRL - Neck Neck exam general surgery: Present: supple, trachea midline. Absent: lymphadenopathy - Respiratory Respiratory exam: Present: CTAB. Absent: accessory muscle use, rales, rhonchi, wheezes - Cardiovascular Cardiovascular exam: Present: RRR, +S1, +S2. Absent: diastolic murmur, gallop, rubs, systolic murmur - GI/Abdominal GI/Abdominal exam: Present: normal bowel sounds, soft, no peritoneal signs. Absent: distended, tenderness - Extremities Exam Extremities exam: Present: warm, radial pulses palpable and symmetrical. Absent : calf tenderness, cyanotic, pedal edema - Neurological Exam Neurological exam: Present: alert, CN II-XII intact, no focal deficits. Absent : oriented X3 (Oriented to person but not place or time), pronater drift, facial droop, speech deficit - Skin Skin exam: Present: dry, intact <Gastelum-Adam Avalos - Last Filed: 05/27/17 14:07> Date of Encounter: 05/27/17 Date of admission: 05/23/17 21:40 Primary care physician: Leslie Umana, Consults: 05/23/17 22:25 Consult to Pastoral Services [CONS] Routine Comment: 05/24/17 13:44 Consult to Occupational Therapy [CONS] Routine Comment: Evaluate, develop and implement POC Reason for Consult: eval Consult to Physical Therapy [CONS] Routine Comment: Evaluate, develop and implement POC Reason for Consult: eval 05/25/17 15:17 Consult to Speech Therapy [CONS] Routine Comment: Evaluate, develop and implement POC Reason for Consult: Swallow evaluation Call Completed: No Hospital course: Ms. Burroughs is a 89 year old female - Time Spent with Patient Total time spent providing and/or coordinating discharge services: - Constitutional Vitals: Temp Pulse Resp BP Pulse Ox 98.0 F 72 15 119/71 96 05/27/17 10:59 05/27/17 10:59 05/27/17 10:59 05/27/17 10:59 05/27/17 10:59 - Attending Attestation I examined this patient and my medical decision-making was reviewed with the Resident Physician. I agree with the documented findings, disposition and treatment plan as described except to the extent set forth below.
--- NOTE | 2017-05-27 09:01 | Physician Discharge Referral ---
<Santos Wilburn - Last Filed: 05/27/17 08:59> Home Health/Hosp Referral Info Transfer to: Home Health Provider in Charge Post Discharge: PCP - Diagnosis (1) UTI (urinary tract infection) Priority: Primary Status: Acute (2) Lactic acid acidosis Priority: Primary Status: Acute (3) Hypomagnesemia Priority: Primary Status: Acute (4) MIRI (acute kidney injury) Priority: Primary Status: Acute (5) Dementia Priority: Primary Status: Acute (6) Hypokalemia Priority: Primary Status: Acute (7) A-fib Priority: Primary Status: Acute (8) Chronic diastolic CHF (congestive heart failure) Priority: Primary Status: Acute - Respiratory Orders None Smoking Cessation: Smoking cessation has been advised. For more information, call the [place] Tobacco Quit Line at 6-859-NCIS-NOW. - Diet/Nutrition Diet/Nutrition Orders: Pureed - Activity Activity Orders: Walker - Services Needed Following services are medically necessary services: Nursing, Home Health Aide, Occupational Therapy, Speech Therapy - Transfer Medications Prescriptions: Cefdinir [Omnicef] 300 mg PO BID #4 capsule Home Medications: RX: Diltiazem CD (24hr) [Cardizem CD] 180 mg PO DAILY 12/30/15 [History] RX: FLUoxetine HCl [Prozac] 20 mg PO DAILY 12/30/15 [History] RX: Metoprolol Succinate 12.5 mg PO DAILY 12/30/15 [History] RX: Warfarin [Coumadin] 2 mg PO HS 12/30/15 [History] RX: Alendronate Sodium [Fosamax] 70 mg PO QWEEK 05/24/17 [History] RX: Ranitidine HCl [Acid Culvert Installer] 150 mg PO DAILY 05/24/17 [History] Cefdinir [Omnicef] 300 mg PO BID #4 capsule 05/27/17 [Rx] RX: Furosemide [Lasix] 20 mg PO DAILY tablet 05/27/17 [Rx] RX: Omeprazole [PriLOSEC] 20 mg PO DAILY@0730 capsule. 05/27/17 [Rx] RX: Ondansetron [Zofran] 4 mg IVP Q8HR PRN vial 05/27/17 [Rx] Allergies/Adverse Reactions: 3 Allergy/AdvReac Type Severity Reaction Status Date / Time carisoprodol [From Soma] Allergy Rash Verified 12/30/15 12:51 indomethacin [From Indocin] Allergy Rash Verified 12/30/15 12:51 NSAIDS (Non-Steroidal Allergy Rash Verified 12/30/15 12:51 Anti-Inflamma Penicillins [PCN] Allergy Rash Verified 12/30/15 12:51 venom-honey bee Allergy Anaphylaxis Verified 12/30/15 12:51 [bee venom (honey bee)] Certification: Further, I certify that my clinical findings support that this patient is homebound (i.e. absences from home require considerable and taxing effort and are for medical reasons or confucianism services or infrequently or short duration when for other reasons) because: Homebound Reason: Patient requires assistance of a person or device to safely leave home, Altered mental status requiring supervision when leaving home Attestation: My signature below is to certify that this patient is under my care and that I, or nurse practitioner, or a physician's financial assistant working with me, has a face-to -face encounter with this patient. <Adam Whitaker - Last Filed: 05/27/17 14:07> - Respiratory Orders Smoking Cessation: Smoking cessation has been advised. For more information, call the [place] Tobacco Quit Line at 3-896-RPJH-NOW. Certification: Further, I certify that my clinical findings support that this patient is homebound (i.e. absences from home require considerable and taxing effort and are for medical reasons or confucianism services or infrequently or short duration when for other reasons) because: Attestation: My signature below is to certify that this patient is under my care and that I, or nurse practitioner, or a physician's financial assistant working with me, has a face-to -face encounter with this patient.
[2017-05-27] MEDS: Diltiazem CD (24hr) 180 MG CAPSULE PO SCH (09:18)
[2017-05-27] MEDS: Furosemide 20 MG TABLET PO SCH (09:19)
[2017-05-27] MEDS: FLUoxetine 20 MG CAPSULE PO SCH (09:19)
[2017-05-27] MEDS: cefTRIAXone 1,000 MG in Water for inj. (sterile) 10 ML IVP SCH (09:19)
[2017-05-27] MEDS: Metoprolol XL (24 HR) Succ 25 MG TAB.ER.24H PO SCH (09:19)
[2017-05-27] MEDS ORDERED: *HR* HYDROcodone/Acet 7.5/325 mg TABLET PO PRN (12:15)
[2017-05-27 15:21] VITALS: BP 119/73
[2017-05-27] MEDS ORDERED: *HR* Warfarin 3 MG TABLET PO ONE (18:00)
== END 2017-05-27 17:03 | disposition home health service (06) | DRG 871 ==
LOC: 2ANU 19:13 → EMEROO 19:13 → 2ANU 21:50
PROVIDERS: ADMIT Family Medicine; ATTEND Internal Medicine